=== PATIENT | female | born 1940 | race Hispanic/Latino ===

== ENCOUNTER 2018-07-14 21:02 | Emergency (ER) | payer MEDICARE ==
[2018-07-14 21:03] VITALS: BMI 22.8
[2018-07-14 21:29] VITALS: RESP 18
[2018-07-14 23:25] LABS: BASO # 0.03 K/mm3 (0.0-2.0); BASO % 0.5 % (0.0-3.0); EOS # 0.1 (0.0-0.7); EOS % 1.8 % (1.5-5.0); GRAN # 4.41 (1.4-6.5); GRAN % 67.7 % (50.0-68.0); HEMOGLOBIN 14.9 g/dL (12.0-16.0); LYMPH # 1.5 (1.2-3.4); LYMPH % 22.9 % (22.0-35.0); MEAN CELL VOLUME 80.7 fl (80.0-105.0); MEAN CORPUSCULAR HEMOGLOBIN 26.7 pg (25.0-35.0); MEAN PLATELET VOLUME 11.1 fl (7.0-11.0); MONO # 0.5 (0.1-0.6); MONO % 7.1 % (1.0-6.0); RBC 5.59 10^6/uL (3.5-6.1); RED CELL DISTRIBUTION WIDTH 15.6 % (11.5-14.5); WHITE BLOOD COUNT 6.5 10^3/uL (4.5-11.0)
[2018-07-14 23:29] LABS: INR 1.14; PARTIAL THROMBOPLASTIN TIME 32.9 Seconds (25.1-36.5)
[2018-07-14 23:35] LABS: ALB/GLOB RATIO 1.2 (1.1-1.8); ALBUMIN 3.7 g/dL (3.0-4.8); ALT/SGPT 24 U/L (7-56); AST/SGOT 29 U/L (14-36); BLOOD UREA NITROGEN 15 mg/dL (7-21); CALCIUM 8.9 mg/dL (8.4-10.5); GFR NON-AFRICAN AMERICAN > 60
[2018-07-15] MEDS ORDERED: Silver Nitrate Topical - Stick TOP ONE (00:08)
--- NOTE | 2018-07-15 00:43 | ED PDOC ---
Arrival/HPI - General Historian: Patient - History of Present Illness Narrative History of Present Illness (Text): 07/15/18 02:12 77 yo F presents c/o epistaxis to the L nare which started a few hours ago after blowing her nose. She reports that she has been having intermittent nosebleeds and was treated last week at [facility] ER, her nose was cauterized and she then followed up with Dr. King, ENT and was told that the bleeding may recur. Patient adds that she has a h/o high platelets and takes hydroxyurea to keep her platelets count low. Otherwise the patient denies any headache, dizziness, nausea, vomiting, chest pain, shortness of breath, palpitations. Of n ote at the bedside patient's blood pressures noted to be elevated, she denies any history of hypertension. <Brenda Sanchez PA-C - Last Filed: 07/15/18 02:12> <Mario Chavira - Last Filed: 07/16/18 06:32> - General Chief Complaint: ENT Problem Time Seen by Provider: 07/14/18 21:18 Past Medical History - Infectious Disease Hx of Infectious Diseases: None - Tetanus Immunization Tetanus Immunization: Unknown - Reproductive Menopause: Yes - Past Medical History Past Medical History: No Previous - Cardiac Hx Cardiac Disorders: Yes - Pulmonary Hx Respiratory Disorders: No - Neurological Hx Neurological Disorder: No - HEENT Hx HEENT Disorder: No - Renal Hx Renal Disorder: No - Endocrine/Metabolic Hx Endocrine Disorders: No - Hematological/Oncological Hx Blood Disorders: No Other/Comment: "thick blood" - Integumentary Hx Dermatological Disorder: No - Musculoskeletal/Rheumatological Hx Musculoskeletal Disorders: No - Gastrointestinal Hx Gastrointestinal Disorders: No - Genitourinary/Gynecological Hx Genitourinary Disorders: No - Psychiatric Hx Psychophysiologic Disorder: No Hx Substance Use: No - Surgical History Other/Comment: 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 - Anesthesia Hx Anesthesia: Yes Hx Anesthesia Reactions: Yes (NAUSEA) Hx Malignant Hyperthermia: No - Suicidal Assessment Feels Threatened In Home Enviroment: No <Brenda Sanchez PA-C - Last Filed: 07/15/18 02:12> Family/Social History Family/Social History: No Known Family HX Smoking Status: Never Smoked Hx Alcohol Use: No Hx Substance Use: No Hx Substance Use Treatment: No <Brenda Sanchez PA-C - Last Filed: 07/15/18 02:12> Allergies/Home Meds <Brenda Sanchez PA-C - Last Filed: 07/15/18 02:12> <Mario Chavira - Last Filed: 07/16/18 06:32> Allergies/Adverse Reactions: Allergies No Known Allergies Allergy (Verified 07/14/18 21:25) Home Medications: Home Meds Medication Instructions Recorded Confirmed Hydroxyurea [Hydrea] 500 mg PO QD7 07/11/16 07/14/18 Aspirin [Aspirin Chewable] 1 tab PO DAILY 07/14/18 07/14/18 Review of Systems - Review of Systems Constitutional: absent: Fatigue, Fevers ENT: Epistaxis. absent: Sore Throat, Rhinorrhea, Sinus Congestion Respiratory: absent: SOB, Cough Cardiovascular: absent: Chest Pain, Palpitations Gastrointestinal: absent: Nausea, Vomiting Musculoskeletal: absent: Arthralgias, Back Pain, Neck Pain Skin: absent: Rash, Pruritis, Skin Lesions Neurological: absent: Headache, Dizziness <Brenda Sanchez PA-C - Last Filed: 07/15/18 02:12> Physical Exam Vital Signs Temp Pulse Resp BP Pulse Ox 07/14/18 21:03 98 F 90 18 159/96 H 100 Temperature: Afebrile Blood Pressure: Hypertensive Pulse: Regular Respiratory Rate: Normal Appearance: Positive for: Well-Appearing, Non-Toxic, Comfortable Pain Distress: Mild Mental Status: Positive for: Alert and Oriented X 3 - Systems Exam Head: Present: Atraumatic, Normocephalic Pupils: Present: PERRL Extroacular Muscles: Present: EOMI Conjunctiva: Present: Normal Mouth: Present: Moist Mucous Membranes Nose (External): Present: Atraumatic Nose (Internal): Present: Other (+mild epistaxis to the L nare with +dried blood to the R nare) Neck: Present: Normal Range of Motion Respiratory/Chest: Present: Clear to Auscultation, Good Air Exchange. No: Respiratory Distress, Accessory Muscle Use Cardiovascular: Present: Regular Rate and Rhythm, Normal S1, S2. No: Murmurs Abdomen: No: Tenderness, Distention, Peritoneal Signs Back: Present: Normal Inspection Upper Extremity: Present: Normal Inspection. No: Cyanosis, Edema Lower Extremity: Present: Normal Inspection. No: Edema Neurological: Present: GCS=15, CN II-XII Intact, Speech Normal, Motor Func Grossly Intact, Normal Sensory Function Skin: Present: Warm, Dry, Normal Color. No: Rashes Psychiatric: Present: Alert, Oriented x 3, Normal Insight, Normal Concentration <Brenda Sanchez PA-C - Last Filed: 07/15/18 02:12> Vital Signs Temp Pulse Resp BP Pulse Ox 07/15/18 00:05 98.1 F 79 18 134/73 98 07/14/18 21:03 98 F 90 18 159/96 H 100 <Mario Chavira - Last Filed: 07/16/18 06:32> Medical Decision Making ED Course and Treatment: 07/15/18 02:18 Plan : Labs drawn. Pressure dressing applied by IDA which controlled bleeding. Labs reviewed : platelet count is 473, rest of the labs wnl. On reevaluation, patient reports improvement of symptoms, denies any active bleeding at this time. On exam, patient remains awake alert and oriented 3 in no acute distress. Nose : +site of bleeding was noted to the anterior septum of the L nare, site of bleeding was cauterized using silver nitrate. Lab results d/w the patient in great detail. Upon discharge the patient has no active bleeding. Advised to follow up her elevated bp with pmd without fail. BP 134/73 P 79. Advised to follow up with primary care physician and ENT in 1-2 days without fail. Return to the emergency room at any time for any new or worsening symptoms. Patient states she fully agrees with and understands discharge instructions. States that she agrees with the plan and disposition. Verbalized and repeated discharge instructions and plan. I have given the patient opportunity to ask any additional questions. - Lab Interpretations Lab Results: 07/14/18 23:06 07/14/18 23:06 Lab Results 07/14/18 23:06: Sodium 140, Potassium 4.6, Chloride 108 H, Carbon Dioxide 26, Anion Gap 11, BUN 15, Creatinine 0.7, Est GFR ( Amer) > 60, Est GFR (Non- Af Amer) > 60, Random Glucose 122 H, Calcium 8.9, Total Bilirubin 0.4, AST 29, ALT 24, Alkaline Phosphatase 64, Total Protein 6.9, Albumin 3.7, Globulin 3.2, Albumin/Globulin Ratio 1.2 07/14/18 23:06: PT 13.0 H, INR 1.14, APTT 32.9 07/14/18 23:06: WBC 6.5, RBC 5.59, Hgb 14.9, Hct 45.1, MCV 80.7, MCH 26.7, MCHC 33.0, RDW 15.6 H, Plt Count 473 H, MPV 11.1 H, Gran % 67.7, Lymph % (Auto) 22.9, [place] % (Auto) 7.1 H, Eos % (Auto) 1.8, Baso % (Auto) 0.5, Gran # 4.41, Lymph # (Auto) 1.5, [place] # (Auto) 0.5, Eos # (Auto) 0.1, Baso # (Auto) 0.03 - Medication Orders Current Medication Orders: Discontinued Medications Silver Nitrate (Silver Nitrate Topical Stick) 2 swa TOP ONCE ONE Stop: 07/15/18 00:09 <Brenda Sanchez PA-C - Last Filed: 07/15/18 02:12> - Lab Interpretations Lab Results: 07/14/18 23:06 07/14/18 23:06 Lab Results 07/14/18 23:06: Sodium 140, Potassium 4.6, Chloride 108 H, Carbon Dioxide 26, Anion Gap 11, BUN 15, Creatinine 0.7, Est GFR ( Amer) > 60, Est GFR (Non- Af Amer) > 60, Random Glucose 122 H, Calcium 8.9, Total Bilirubin 0.4, AST 29, ALT 24, Alkaline Phosphatase 64, Total Protein 6.9, Albumin 3.7, Globulin 3.2, Albumin/Globulin Ratio 1.2 07/14/18 23:06: PT 13.0 H, INR 1.14, APTT 32.9 07/14/18 23:06: WBC 6.5, RBC 5.59, Hgb 14.9, Hct 45.1, MCV 80.7, MCH 26.7, MCHC 33.0, RDW 15.6 H, Plt Count 473 H, MPV 11.1 H, Gran % 67.7, Lymph % (Auto) 22.9, [place] % (Auto) 7.1 H, Eos % (Auto) 1.8, Baso % (Auto) 0.5, Gran # 4.41, Lymph # (Auto) 1.5, [place] # (Auto) 0.5, Eos # (Auto) 0.1, Baso # (Auto) 0.03 - Medication Orders Current Medication Orders: Discontinued Medications Silver Nitrate (Silver Nitrate Topical Stick) 2 swa TOP ONCE ONE Stop: 07/15/18 00:09 <Mario Chavira - Last Filed: 07/16/18 06:32> - PA / OCCUPATIONAL MEDICINE SPECIALIST / Resident Statement [facility] has reviewed & agrees with the documentation as recorded. <Brenda Sanchez PA-C - Last Filed: 07/15/18 02:12> - PA / OCCUPATIONAL MEDICINE SPECIALIST / Resident Statement [facility] has reviewed & agrees with the documentation as recorded. [facility] has examined the patient and agrees with the treatment plan. <Mario Chavira - Last Filed: 07/16/18 06:32> Disposition/Present on Arrival - Present on Arrival Any Indicators Present on Arrival: No History of DVT/PE: No History of Uncontrolled Diabetes: No Urinary Catheter: No History of Decub. Ulcer: No History Surgical Site Infection Following: None - Disposition Have Diagnosis and Disposition been Completed?: Yes Disposition Time: 00:40 Patient Plan: Discharge <Brenda Sanchez PA-C - Last Filed: 07/15/18 02:12> <Mario Chavira - Last Filed: 07/16/18 06:32> - Disposition Diagnosis: Epistaxis Disposition: HOME/ ROUTINE Condition: STABLE Discharge Instructions (ExitCare): Nosebleeds (DC) Additional Instructions: Thank you for letting us take care of you today. You were treated for epistaxis, elevated blood pressure. The emergency medical care you received today was directed at your acute symptoms. Return to the Emergency Department if your symptoms worsen, do not improve, or if you have any other problems. Please contact your doctor in 2 days for re-evaluation and follow up / or call one of the physicians/clinics you have been referred to that are listed on the Patient Visit Information form that is included in your discharge packet. Bring any paperwork you were given at discharge with you along with any medications you are taking to your follow up visit. Our treatment cannot replace ongoing medical care by a primary care provider (PCP) outside of the emergency department. Thank you for allowing the [facility] team to be part of your care today. Referrals: Otto Ingram Req, [Non-Staff] - Follow up with primary Jose Lyman DO [Staff Provider] - Follow up with primary Forms: [facility] ([place])
[2018-07-15 00:46] VITALS: BP 134/73; PULSE 79; TEMP 98.1; O2SAT 98
== END 2018-07-15 00:48 | disposition home or self-care (01) ==
LOC: ED 21:02
DX: R04.0 Epistaxis (principal)